=== PATIENT | male | born 1940 | race Two or more races ===

== ENCOUNTER 2017-06-27 11:19 | Emergency (ER) | payer OTHER ==
[~2017-06-27] VITALS: Ht 172.7 cm; Wt 72.6 kg
[2017-06-27] MEDS ORDERED: SYNTROID (11:41)
== END 2017-06-27 22:26 | disposition home or self-care (01) ==
LOC: ER 11:19
DX: R41.0 Disorientation, unspecified (principal); G25.2 Other specified forms of tremor; R53.81 Other malaise; F41.8 Other specified anxiety disorders